=== PATIENT | male | born 1970 | race Caucasian/White ===

== ENCOUNTER → 2019-10-26 16:06 | Outpatient (CLI) | payer OTHER ==
[2013-06-24 08:36] VITALS: BMI 28.7
[~2019-10-26 16:06] MED LIST: LISINOPRIL10 MG GT; NORCO 10/325 TA1 TA1 PO; PRILOSEC20 MG PO; RYBIX ODT50 MG PO
== END | disposition home or self-care (01) ==
LOC: D.MRI 16:06
PROVIDERS: ATTEND Orthopaedic Surgery
DX: M75.122 Complete rotator cuff tear or rupture of left shoulder, not specified as traumatic (principal)

== ENCOUNTER 2019-12-09 05:15 | Day surgery (SDC) | payer BC, OTHER ==
[2019-12-08 08:28] LABS: HEMOGLOBIN 16.5 g/dL (13.5-17.5); MCH 29.6 pg (26.0-34.0); MCHC 34.4 g/dL (31.0-37.0); MCV 86.2 fL (80.0-100.0); MEAN PLATELET VOLUME 8.9 fL (7.4-10.4); RBC 5.57 10x6/uL (4.20-6.10); WBC 8.4 10x3/uL (4.8-10.8)
[2019-12-08 08:32] LABS: CALC OSMOLALITY 278 mosm/kg (275-300); CALCIUM 8.7 mg/dL (8.5-10.1); CARBON DIOXIDE 27.4 mmol/L (21.0-32.0); CHLORIDE - SERUM 104 mmol/L (98-107); CREATININE - SERUM 0.9 mg/dL (0.6-1.3); GLUCOSE 89 mg/dL (74-106); POTASSIUM - SERUM 4.3 mmol/L (3.5-5.1); SODIUM 139 mmol/L (136-145); UREA NITROGEN 17 mg/dL (7-18); eGFR NON AFRICAN AMERICAN > 90 mL/min (90-120)
[~2019-12-09] VITALS: Ht 177.8 cm; Wt 88.5 kg
[~2019-12-09 05:15] MED LIST changes: +CO Q-10100 MG; +COZAAR50 MG; +PRAVACHOL20 MG PO
[2019-12-09 06:22] VITALS: BP 140/88; Ht 177.8 cm; Wt 88.5 kg
[2019-12-09] MEDS ORDERED: HYDROCODON-ACE1 EA10 PO (08:52)
--- NOTE | 2019-12-09 13:03 | NUR ---
1022 IV DC'D. CATHETER TIP INTACT. NO BLEEDING AT SITE. BANDAID APPLIED.
--- NOTE | 2019-12-13 09:44 | OP ---
PATIENT NAME: LUCY HOBBS MEDICAL RECORD: [id number] :70 LOCATION:[facility] ADMISSION DATE: SURGEON: JORGE PEDROZA, NAHEED BOSWELL DATE OF OPERATION: 12/09/2019 PREOPERATIVE DIAGNOSES: 1. Rotator cuff tear of the left shoulder. 2. SLAP lesion of the left shoulder. 3. Impingement syndrome of the left shoulder. 4. Acromioclavicular arthritis, left shoulder. POSTOPERATIVE DIAGNOSES: 1. Rotator cuff tear of the left shoulder. 2. SLAP lesion of the left shoulder. 3. Impingement syndrome of the left shoulder. 4. Acromioclavicular arthritis, left shoulder. PROCEDURES: 1. Arthroscopic rotator cuff repair. 2. Arthroscopic SLAP repair. 3. Arthroscopic distal clavicle excision done through separate incision -- 1 cm. 4. Arthroscopic subacromial decompression, acromioplasty, and bursectomy. SURGEON: Naheed Patel MD DEPUTY SHERIFF LIEUTENANT: SAURABH Diehl INTRAOPERATIVE COMPLICATIONS: None. SUMMARY OF PATHOLOGIC FINDINGS: Consistent with the preoperative diagnosis, the patient in need of full thickness rotator cuff tear. The patient also had a superior labral tear. The patient had a downward sloping acromion with excoriation of the coracoacromial ligament and grade IV chondromalacia of the acromioclavicular joint. OPERATIVE SUMMARY IN DETAIL: After obtaining the appropriate preoperative orthopedic surgery consent as well as anesthetic consultation, evaluation and clearance, the patient was brought to the operating room and placed on the operating table in a supine position. After general laryngeal mask airway was administered, the patient was placed in right lateral decubitus position. All pressure points well padded to include down leg peroneal pad as well as axillary roll. The patient was held firmly to the operating table using the vacuum pack suction system. Left upper extremity and shoulder were then prepped and draped in routine sterile fashion. The arm was held in the [employer] traction boom at 30 degrees of forward flexion, 30 degrees of abduction with 10 pounds of traction laterally. At this point, the appropriate timeout was taken and agreed upon by all using the patient identifiers. Arthroscopy was established in the glenohumeral joint from a posterior portal. Anterior portal was established in the anterior safe interval. Diagnostic arthroscopy did reveal the above findings. A tertiary portal was made and the rotator cuff tear was used as a lateral portal to access the labrum. The superior glenoid was prepared for reapproximation using both the resector as well as the arthroscopic periosteal elevator. Two 3.0 PushLocks from [employer] were placed, one at the 11 o'clock position and one at the 1 o'clock position on either side of the bicipital OPERATIVE REPORT [id number] LUCY HOBBS labral junction. This was done using the lasso passer with a FiberTape and the labrum was then nicely reapproximated with the 2 anchors as mentioned above. Having completed this, arthroscopy was turned to the subacromial joint. While on subacromial joint, [place] tissue ablation system was utilized to denude the undersurface of the acromion of all soft tissue elements and released the coracoacromial ligament. Having completed this, a 5-0 barrel bur was then utilized to perform an acromioplasty at the level of the AC joint. Next, under direct arthroscopic visualization, the 5-0 barrel bur was utilized to debride the AC joint at approximately 1 cm and removed the undersurface osteophytes. Lastly, attention was turned to the rotator cuff. The resector was utilized to clean up the rotator cuff and then decorticate the supraspinatus tendinous footprint. Two FiberTapes were placed in inverted mattress style fashion and then they were anchored laterally with two 4.75 SwiveLock from [employer]. Having completed this, arthroscopy portals were closed by SAURABH Diehl. Sterile dressings were applied. The patient was awakened, taken to recovery room in stable condition. All final needle and sponge counts were correct. TRANSINT:[id number] Voice Confirmation ID: [id number] DOCUMENT ID: [id number] JORGE PEDROZA, NAHEED BOSWELL at 0944 CC: [id number] DICTATION DATE: 12/09/19 0857 GLOBE MOUNTER: 12/09/19 1521 [facility] 12/09/[address] [id number]
== END 2019-12-09 10:35 | disposition home or self-care (01) ==
LOC: D.OPS 05:15 → D.PAN 08:15 → D.OPS 08:45
PROVIDERS: Anesthesiology; ATTEND Orthopaedic Surgery
DX: M75.122 Complete rotator cuff tear or rupture of left shoulder, not specified as traumatic (principal); S43.432A Superior glenoid labrum lesion of left shoulder, initial encounter; X58.XXXA Exposure to other specified factors, initial encounter; M75.42 Impingement syndrome of left shoulder; M19.012 Primary osteoarthritis, left shoulder; M25.519 Pain in unspecified shoulder